=== PATIENT | female | born 1955 | race Caucasian/White ===

== ENCOUNTER 2020-04-01 13:34 | Emergency (ER) | payer OTHER ==
[2020-04-01 13:44] VITALS: BP 129/62; PULSE 99; TEMP 97; BMI 26.9
[2020-04-01 14:55] LABS: BASO % 0.6 % (0-2.0); EOS % 2.5 % (0-4.5); HEMATOCRIT 29.5 % (32.4-45.2); HEMOGLOBIN 9.4 GM/dL (10.7-15.3); MCH 24.6 pg (25.7-33.7); MCHC 31.9 g/dl (32.0-36.0); MEAN CELL VOLUME 77.1 fl (80-96); MEAN PLT VOLUME 7.5 fl (7.5-11.1); NEUT % 68.9 % (42.8-82.8); PLATELET COUNT 434 K/MM3 (134-434); RBC 3.82 M/mm3 (3.60-5.2); RDW 16.8 % (11.6-15.6); WHITE BLOOD COUNT 11.5 K/mm3 (4.0-10.0)
[2020-04-01 15:18] LABS: CHLORIDE 105 mmol/L (98-107); POTASSIUM 3.9 mmol/L (3.5-5.1); SODIUM 137 mmol/L (136-145)
[2020-04-01 15:20] LABS: ALBUMIN 3.4 g/dl (3.4-5.0); ANION GAP 7 MMOL/L (8-16); BLOOD UREA NITROGEN 27.7 mg/dL (7-18); CALCIUM 8.9 mg/dL (8.5-10.1); CO2 24 mmol/L (21-32); GLUCOSE,RANDOM 176 mg/dL (74-106)
[2020-04-01 15:23] LABS: SGOT/AST 22 U/L (15-37); SGPT/ALT 23 U/L (13-61)
[2020-04-01 15:24] LABS: CREATININE 1.6 mg/dL (0.55-1.3)
[2020-04-01 15:25] LABS: BILIRUBIN,TOTAL 0.4 mg/dL (0.2-1); TOT PROT 7.4 g/dl (6.4-8.2)
[2020-04-01 15:26] LABS: ALK PHOS 76 U/L (45-117)
== END 2020-04-01 16:10 | disposition home or self-care (01) ==
LOC: JER 13:34
DX: R20.2 Paresthesia of skin (principal)
CPT/HCPCS: 36415; 70450-TC; 80053; 82550; 82962; 84484; 85025; 93005; 93010; 99285-25